=== PATIENT | male | born 1975 | race Caucasian/White ===

== ENCOUNTER 2016-07-17 01:02 | Emergency (ER) | payer BC ==
[2016-07-17 01:59] VITALS: BP 135/73; PULSE 75; TEMP 97.5; BMI 24.3
[2016-07-17] MEDS ORDERED: morphine CARPU-JECT 4 MG/1 ML DISP.SYRIN IVPUSH ONE (02:00)
[2016-07-17] MEDS ORDERED: SODIUM CHLORIDE 0.9% 1000 ML INFUS.BAG IV ONE (02:00)
[2016-07-17] MEDS ORDERED: KETOROLAC TROMETHAMINE 30 MG/1 ML VIAL IVPUSH ONE (02:00)
--- NOTE | 2016-07-17 02:08 | PDOC ---
History of Present Illness <Flor Finnegan - Last Filed: 07/17/16 03:16> - General History Source: Patient, Family Exam Limitations: No Limitations - History of Present Illness Initial Comments: 07/17/16 01:58 Patient is a 40 old male with no past medical history here with complaints of left flank pain which radiates to the left lower quad which started suddenly at 11pm after eating out. States pain is 10/10, sharp in the left flank then radiated to the left lower quad. He has nausea, vomiting and vomited a little blood per for significant other. Denies fever, chills, diarrhea, No prior episode, no h/o kidney stone but FamHx of kidney stone. PMD: Dr. Chun PMHX: neg PSOCHX: 8 cig, neg etoh, neg drugs ALL: NKDA GENERAL/CONSTITUTIONAL: [No fever or chills. No weakness. No weight change.] HEAD, EYES, EARS, NOSE AND THROAT: [No change in vision. No ear pain or discharge. No sore throat.] CARDIOVASCULAR: [No chest pain or shortness of breath.] RESPIRATORY: [No cough, wheezing, or hemoptysis.] GASTROINTESTINAL: (+) nausea, vomiting, (-) diarrhea or constipation. No rectal bleeding.] GENITOURINARY: [No dysuria, frequency, or change in urination.] MUSCULOSKELETAL: [No joint or muscle swelling or pain. No neck or back pain.] SKIN AND BREASTS: [No rash or easy bruising.] NEUROLOGIC: [No headache, vertigo, loss of consciousness, or loss of sensation.] PSYCHIATRIC: [No depression or anxiety.] ENDOCRINE: [No increased thirst. No abnormal weight change.] HEMATOLOGIC/LYMPHATIC: [No anemia, easy bleeding, or history of blood clots.] ALLERGIC/IMMUNOLOGIC: [No hives or skin allergy. No latex allergy.] GENERAL: [The patient is awake, alert, and fully oriented, in moderate painful distress.] HEAD: [Normal with no signs of trauma.] EYES: [Pupils equal, round and reactive to light, extraocular movements intact, sclera anicteric, conjunctiva clear.] ENT: [Ears normal, nares patent, oropharynx clear without exudates. Moist mucous membranes.] NECK: [Normal range of motion, supple without lymphadenopathy, JVD, or masses.] LUNGS: [Breath sounds equal, clear to auscultation bilaterally. No wheezes, and no crackles.] HEART: [Regular rate and rhythm, normal S1 and S2 without murmur, rub.] ABDOMEN: [Soft, (+) tenderness to the LLQ, normoactive bowel sounds. No guarding, no rebound. No masses, (+) LCVAT] EXTREMITIES: [Normal range of motion, no edema. No clubbing or cyanosis. No cords, erythema, or tenderness.] NEUROLOGICAL: [Cranial nerves II through XII grossly intact. Normal speech, normal gait.] PSYCH: [Normal mood, normal affect.] SKIN: [Warm, Dry, normal turgor, no rashes or lesions noted.] <Talya Chavez - Last Filed: 07/17/16 05:43> - General Chief Complaint: Pain Stated Complaint: ABDOMINAL AND BACK PAIN, VOMITTING Time Seen by Provider: 07/17/16 01:47 Past History <Flor Finnegan - Last Filed: 07/17/16 03:16> - Past Medical History Anemia: No Asthma: No Cancer: No Cardiac Disorders: No CVA: No COPD: No CHF: No Dementia: No Diabetes: No GI Disorders: No Disorders: No HTN: No Hypercholesterolemia: Yes Liver Disease: No Suicide Attempt (Hx): No Seizures: No Thyroid Disease: No - Surgical History Abdominal Surgery: No Appendectomy: No Cardiac Surgery: Yes (radial cardiac cath) Cholecystectomy: No Lung Surgery: No Neurologic Surgery: No Orthopedic Surgery: Yes (KNEE ARTHROSCOPY, RIGHT) - Immunization History Immunization Up to Date: Yes - Psycho/Social/Smoking Cessation Hx Anxiety: No Suicidal Ideation: No Smoking Status: Yes Smoking History: Former smoker Have you smoked in the past 12 months: Yes Number of Cigarettes Smoked Daily: 20 If you are a former smoker, when did you quit?: 06/2014 'Breaking Loose' booklet given: 04/21/13 Hx Alcohol Use: Yes Drug/Substance Use Hx: No Substance Use Type: Alcohol Hx Substance Use Treatment: No <Talya Chavez - Last Filed: 07/17/16 05:43> - Past Medical History Allergies/Adverse Reactions: Allergies Allergy/AdvReac Type Severity Reaction Status Date / Time No Known Drug Allergies Allergy Verified 05/07/16 18:38 Home Medications: Ambulatory Orders Amoxicillin/Potassium Clav [Augmentin 875-125 Tablet] 1 each PO BID #14 tablet 03/29/15 Promethazine HCl [Phenergan Plain 6.25 MG/5 ML -] 5 ml PO TID #120 ml 03/29/15 Naproxen Sodium [Naproxen Sodium ER] 500 mg PO BID #20 tablet.er 07/17/16 Oxycodone HCl/Acetaminophen [Percocet 5-325 mg Tablet] 1 - 2 tab PO Q4H #15 tablet MDD 6 07/17/16 Tamsulosin HCl [Flomax] 0.4 mg PO DAILY #7 capsule 07/17/16 *Physical Exam - Vital Signs Last Vital Signs Temp Pulse Resp BP Pulse Ox 97.5 F L 75 18 135/73 100 07/17/16 01:57 07/17/16 01:57 07/17/16 01:57 07/17/16 01:57 07/17/16 01:57 <Flor Finnegan - Last Filed: 07/17/16 03:16> ED Treatment Course - LABORATORY CBC & Chemistry Diagram: 07/17/16 02:10 07/17/16 02:10 - ADDITIONAL ORDERS Additional order review: Laboratory Results 07/17/16 02:10 Sodium 143 Potassium 3.7 Chloride 102 Carbon Dioxide 30 Anion Gap 11 BUN 20 H D Creatinine 1.0 D Creat Clearance w eGFR > 60 Random Glucose 105 D Calcium 9.1 Total Bilirubin 0.3 D AST 12 L ALT 34 Alkaline Phosphatase 88 Total Protein 6.9 Albumin 4.3 07/17/16 02:10 RBC 5.22 MCV 84.8 MCHC 34.3 RDW 14.0 MPV 11.8 H D Neutrophils % 81.7 D Lymphocytes % 11.5 D Monocytes % 5.8 Eosinophils % 0.6 Basophils % 0.4 - RADIOLOGY Radiograph Interpretation: 07/17/16 03:16 CT abdomen and pelvis without contrast Reported by Dr. Baljeet Seymour Findings: Lung bases are clear. The visualized cardiac chambers are normal size and configuration. There is mild left hydronephrosis and perinephric inflammation secondary to a 1 mm distal left ureteral stone, just adjacent to the UVJ. No other stones identified. Right hepatic lobe calcifications may be granulomas. Normal unenhanced gallbladder, pancreas, spleen, adrenal glands and right kidney. The stomach and abdominal small and large bowel are normal. There is no aortic aneurysm. There is no significant retroperitoneal lymphadenopathy. The pelvic small and large bowel are normal. The appendix is normal. The urinary bladder and prostate gland are normal. No pelvic free fluid is identified. There is no significant pelvic lymphadenopathy. - Medications Given in the ED: ED Medications Discontinued Medications Generic Name Dose Route Start Last Admin Trade Name Chavezq PRN Reason Stop Dose Admin Ketorolac Tromethamine 30 mg 07/17/16 02:00 07/17/16 02:14 Toradol Injection - IVPUSH 07/17/16 02:01 30 mg ONCE ONE Administration Morphine Sulfate 4 mg 07/17/16 02:00 07/17/16 02:14 Morphine Injection - IVPUSH 07/17/16 02:01 4 mg ONCE ONE Administration Sodium Chloride 1,000 ml 07/17/16 02:00 07/17/16 02:14 Normal Saline - IV 07/17/16 02:01 1,000 ml ONCE ONE Administration <Flor Finnegan - Last Filed: 07/17/16 03:16> - LABORATORY CBC & Chemistry Diagram: 07/17/16 02:10 07/17/16 02:10 <Talya Chavez - Last Filed: 07/17/16 05:43> Medical Decision Making - Medical Decision Making 07/17/16 02:08 Patient is a 40 old male with no past medical history here with complaints of left flank pain which radiates to the left lower quad which started suddenly at 11pm after eating out consistent with kidney stone. labs, IVF, UA ct abd/pel reassess labs and ct reviewed CT noted to have mild hydro and a 1mm stone Left UVJ will given flomax still c/o slight pain given Percocet 1 tab po 07/17/16 05:16 Laboratory Tests 07/17/16 03:53 Urine Color Yellow Urine Appearance Clear Urine pH 7.0 Ur Specific [place] 1.017 Urine Protein Negative Urine Glucose (UA) Negative Urine Ketones Negative Urine Blood 3+ H Urine Nitrite Negative Urine Bilirubin Negative Urine Urobilinogen Negative Ur Leukocyte Esterase Negative Urine RBC 186 Urine WBC 2 Urine Bacteria Rare Hyaline Casts 1 Urine Mucus Few Patient is feeling better will discharge with strainer, pain meds and follow up with urology I discussed the physical exam findings, ancillary test results and final diagnoses with the patient. I answered all of the patient's questions. The patient was satisfied with the care received and felt comfortable with the discharge plan and treatment plan. The Patient agrees to follow up with the Urology within 24-72 hours. <Talya Chavez - Last Filed: 07/17/16 05:43> *DC/Admit/Observation/Transfer <Flor Finnegan - Last Filed: 07/17/16 03:16> <Talya Chavez - Last Filed: 07/17/16 05:43> Diagnosis at time of Disposition: Renal colic on left side - Discharge Dispostion Disposition: HOME Condition at time of disposition: Stable - Prescriptions Prescriptions: Tamsulosin HCl [Flomax] 0.4 mg PO DAILY #7 capsule Naproxen Sodium [Naproxen Sodium ER] 500 mg PO BID #20 tablet.er Oxycodone HCl/Acetaminophen [Percocet 5-325 mg Tablet] 1 - 2 tab PO Q4H #15 tablet MDD 6 - Referrals Referrals: Tonny Parkinson MD [Staff Physician] - - Patient Instructions Printed Discharge Instructions: Kidney Stones -- Adult Additional Instructions: Your Discharge Instructions: You must call primary care physician within 24 hours to arrange follow-up. Return to the Emergency Department with any new, persistent or worsening symptoms, for fever, chills, SOB, dizziness or any other concerning changes that may occur.
[2016-07-17] MEDS ORDERED: KETOROLAC TROMETHAMINE 30 MG/1 ML VIAL ONE (02:11)
[2016-07-17] MEDS ORDERED: morphine CARPU-JECT 4 MG/1 ML DISP.SYRIN ONE (02:11)
[2016-07-17 02:16] LABS: BASOPHIL 0.4 % (0-2.0); EOSINOPHIL 0.6 % (0-4.5); MCH 29.1 pg (25.7-33.7); MCHC 34.3 g/dl (32.0-35.9); MEAN CELL VOLUME 84.8 fl (80-96); MEAN PLT VOLUME 11.8 fl (7.5-11.1); NEUTROPHILS 81.7 % (42.8-82.8); PLATELET COUNT 158 K/MM3 (134-434); WHITE BLOOD COUNT 14.8 K/mm3 (4.0-10.0)
[2016-07-17 02:38] LABS: ALBUMIN 4.3 g/dl (3.4-5.0); ALK PHOS 88 U/L (45-117); ANION GAP 11 (8-16); BILIRUBIN,TOTAL 0.3 mg/dL (0.2-1.0); CALCIUM 9.1 mg/dL (8.5-10.1); CO2 30 mmol/L (21-32); GLUCOSE,RANDOM 105 mg/dL (74-106); SGOT/AST 12 U/L (15-37); SGPT/ALT 34 U/L (12-78); TOT PROT 6.9 g/dl (6.4-8.2)
[2016-07-17] MEDS ORDERED: TAMSULOSIN HCL 0.4 MG CAP.ER.24H (FP) PO ONE (03:48)
[2016-07-17] MEDS ORDERED: OXYCODONE/APAP 5/325MG COMBO TABLET PO ONE (03:50)
[2016-07-17 03:55] LABS: PLATELET COMMENT2 NO CLOTTING DETECTED; PLATELET COMMENT3 FEW LARGE PLTS; PLATELET ESTIMATE ADEQUATE (NORMAL)
[2016-07-17 04:03] LABS: URINE APPEARANCE CLEAR; URINE BILIRUBIN NEGATIVE (NEGATIVE); URINE BLOOD 3+ (NEGATIVE); URINE COLOR YELLOW; URINE GLUCOSE (UA) NEGATIVE (NEGATIVE); URINE KETONE NEGATIVE (NEGATIVE); URINE LEUK ESTERASE NEGATIVE (NEGATIVE); URINE NITRITE NEGATIVE (NEGATIVE); URINE PROTEIN NEGATIVE (NEGATIVE); URINE UROBILINOGEN NEGATIVE E.U./dl (0.2-1.0)
[2016-07-17 04:05] LABS: URINE BACTERIA RARE /hpf (NONE SEEN); URINE HYALINE CAST 1 /lpf; URINE MUCUS FEW; URINE RBC 186 /hpf (0-3); URINE WBC 2 /hpf (3-5)
[2016-07-17] MEDS ORDERED: OXYCODONE/APAP 5/325MG COMBO TABLET ONE (04:57)
[2016-07-17] MEDS ORDERED: TAMSULOSIN HCL 0.4 MG CAP.ER.24H (FP) ONE (04:57)
== END 2016-07-17 05:53 | disposition home or self-care (01) ==
LOC: JER 01:02
PROC: 3E033NZ Introduction of Analgesics, Hypnotics, Sedatives into Peripheral Vein, Percutaneous Approach (ICD-10-PCS; principal; 2016-07-17)
PROC: 3E0333Z Introduction of Anti-inflammatory into Peripheral Vein, Percutaneous Approach (ICD-10-PCS; 2016-07-17)
DX: N13.2 Hydronephrosis with renal and ureteral calculous obstruction (principal)
CPT/HCPCS: 36415; 74176-TC; 80053; 81003; 81015; 85025; 99282-25

== ENCOUNTER 2020-07-07 14:12 | Emergency (ER) | payer BC ==
[2020-07-07 14:42] VITALS: BP 129/81; PULSE 75; TEMP 98.1; BMI 29.0
== END 2020-07-07 15:55 | disposition home or self-care (01) ==
LOC: JER 14:12
DX: R06.02 Shortness of breath (principal)
CPT/HCPCS: 71046-TC-FY; 99284-25

== ENCOUNTER 2021-07-01 08:13 | Emergency (ER) | payer BC ==
[2021-07-01 08:34] VITALS: BP 109/78; PULSE 66; TEMP 97.6; BMI 29.0
[2021-07-01 09:40] LABS: BASO % 0.9 % (0-2.0); EOS % 1.2 % (0-4.5); HEMATOCRIT 48.6 % (35.4-49); HEMOGLOBIN 16.1 GM/dL (11.7-16.9); LYMPH % 30.8 % (8-40); MCH 28.1 pg (25.7-33.7); MCHC 33.1 g/dl (32.0-35.9); MEAN CELL VOLUME 84.8 fl (80-96); MEAN PLT VOLUME 10.6 fl (7.5-11.1); MONO % 7.6 % (3.8-10.2); NEUT % 59.5 % (42.8-82.8); PLATELET COUNT 166 10^3/uL (134-434); RBC 5.73 M/mm3 (4.00-5.60); RDW 14.5 % (11.9-15.9)
[2021-07-01 09:42] LABS: URINE APPEARANCE CLEAR; URINE BILIRUBIN NEGATIVE (NEGATIVE); URINE COLOR YELLOW; URINE GLUCOSE (UA) NEGATIVE (NEGATIVE); URINE KETONE NEGATIVE (NEGATIVE); URINE LEUK ESTERASE NEGATIVE (NEGATIVE); URINE NITRITE NEGATIVE (NEGATIVE); URINE PROTEIN NEGATIVE (NEGATIVE); URINE UROBILINOGEN 0.2 mg/dL (0.2-1.0)
[2021-07-01] MEDS ORDERED: SODIUM CHLORIDE 1,000 ML IV STA (10:01)
[2021-07-01] MEDS ORDERED: ACETAMINOPHEN 1000 MG/100 ML BAG IVPB ONE (10:02)
[2021-07-01 10:13] LABS: ALBUMIN 3.9 g/dl (3.4-5.0); BLOOD UREA NITROGEN 11.4 mg/dL (7-18)
[2021-07-01 10:16] LABS: CREATININE 0.9 mg/dL (0.55-1.3)
[2021-07-01 10:18] LABS: BILIRUBIN,TOTAL 0.5 mg/dL (0.2-1)
[2021-07-01] MEDS ORDERED: ACETAMINOPHEN INJECTION 100 ML IVPB ONE (10:18)
== END 2021-07-01 12:28 | disposition home or self-care (01) ==
LOC: JER 08:13
PROC: 3E033NZ Introduction of Analgesics, Hypnotics, Sedatives into Peripheral Vein, Percutaneous Approach (ICD-10-PCS; principal; 2021-07-01)
PROC: 3E0337Z Introduction of Electrolytic and Water Balance Substance into Peripheral Vein, Percutaneous Approach (ICD-10-PCS; 2021-07-01)
DX: R10.32 Left lower quadrant pain (principal)
CPT/HCPCS: 36415; 74177-TC; 80053; 81003; 83690; 85025; 87804; 99285-25; C9803; J0131; Q9967; U0003; U0005

== ENCOUNTER 2022-01-24 04:32 | Day surgery (SDC) | payer BC ==
[2022-01-20 15:19] VITALS: BMI 28.1
[2022-01-24] MEDS ORDERED: BUPIVACAINE HCL/PF 0.75% 10 ML VIAL ONE (07:20)
[2022-01-24] MEDS ORDERED: LIDOCAINE HCL/PF 1% SDV 5ML VIAL ONE (07:21)
[2022-01-24] MEDS ORDERED: BUPIVACAINE HCL/PF 0.75% 10 ML VIAL NR ONE (13:55)
[2022-01-24] MEDS ORDERED: LIDOCAINE HCL 1% PRESERVATIVE FREE - 30ML VIAL IJ ONE (13:56)
[2022-01-24 15:52] VITALS: BP 133/86; PULSE 60; RESP 20; TEMP 99
== END 2022-01-24 15:00 | disposition home or self-care (01) ==
LOC: JASU-SURG 04:32
PROVIDERS: ATTEND Pain Medicine Pain Medicine
PROC: BR16YZZ Fluoroscopy of Lumbar Facet Joint(s) using Other Contrast (ICD-10-PCS; 2022-01-24)
PROC: 3E0T3BZ Introduction of Anesthetic Agent into Peripheral Nerves and Plexi, Percutaneous Approach (ICD-10-PCS; principal; 2022-01-24 14:00)
DX: M47.816 Spondylosis without myelopathy or radiculopathy, lumbar region (principal)
CPT/HCPCS: 76000-TC-FY

== ENCOUNTER 2022-02-21 04:24 | Day surgery (SDC) | payer BC ==
[2022-02-17 14:03] VITALS: BMI 28.1
[2022-02-21] MEDS ORDERED: DEXAMETHASONE SOD PHOSPHATE 10 MG/1 ML VIAL ONE (07:38)
[2022-02-21] MEDS ORDERED: LIDOCAINE HCL/PF 1% SDV 5ML VIAL ONE (07:38)
[2022-02-21] MEDS ORDERED: IOHEXOL 180 MG/1 ML ML IJ ONE (10:21)
[2022-02-21] MEDS ORDERED: LIDOCAINE HCL 1% PRESERVATIVE FREE - 30ML VIAL IJ ONE (10:21)
[2022-02-21] MEDS ORDERED: DEXAMETHASONE SOD PHOSPHATE 10 MG/1 ML VIAL IVPUSH ONE (10:22)
[2022-02-21 13:19] VITALS: BP 129/87; PULSE 67; RESP 18; TEMP 97.9
== END 2022-02-21 11:30 | disposition home or self-care (01) ==
LOC: JASU-SURG 04:24
PROVIDERS: ATTEND Pain Medicine Pain Medicine
PROC: 3E0R33Z Introduction of Anti-inflammatory into Spinal Canal, Percutaneous Approach (ICD-10-PCS; 2022-02-21)
PROC: 3E0R3BZ Introduction of Anesthetic Agent into Spinal Canal, Percutaneous Approach (ICD-10-PCS; principal; 2022-02-21 09:00)
DX: M54.16 Radiculopathy, lumbar region (principal)
CPT/HCPCS: 76000-TC-FY; J1100

== ENCOUNTER 2022-03-24 04:28 | Day surgery (SDC) | payer BC, OTHER ==
[2022-03-23 10:30] VITALS: BMI 28.1
[2022-03-24] MEDS ORDERED: TRIAMCINOLONE ACET 40MG/1ML VIAL ONE (08:11)
[2022-03-24] MEDS ORDERED: BUPIVACAINE HCL/PF 0.5% (5MG/ML) 10 ML VIAL ONE (08:11)
[2022-03-24] MEDS ORDERED: LIDOCAINE HCL/PF 1% SDV 5ML VIAL ONE (08:11)
[2022-03-24 12:01] VITALS: RESP 18
[2022-03-24] MEDS ORDERED: LIDOCAINE HCL 1% PRESERVATIVE FREE - 30ML VIAL IJ ONE ×3 (13:39→14:24)
[2022-03-24] MEDS ORDERED: BUPIVACAINE HCL/PF 0.5% (5MG/ML) 10 ML VIAL IJ ONE ×2 (13:41→14:24)
[2022-03-24] MEDS ORDERED: TRIAMCINOLONE ACETONIDE 40 MG/ML 10 ML VIAL IJ ONE ×2 (13:42→14:24)
[2022-03-24] MEDS ORDERED: IOHEXOL 180 MG/1 ML ML IJ ONE (14:24)
[2022-03-24 14:56] VITALS: BP 108/75; PULSE 63; TEMP 98.2
== END 2022-03-24 15:07 | disposition home or self-care (01) ==
LOC: JASU-SURG 04:28
PROVIDERS: ATTEND Pain Medicine Pain Medicine
PROC: 3E0U3BZ Introduction of Anesthetic Agent into Joints, Percutaneous Approach (ICD-10-PCS; 2022-03-24)
PROC: 3E0U33Z Introduction of Anti-inflammatory into Joints, Percutaneous Approach (ICD-10-PCS; principal; 2022-03-24 13:00)
DX: M53.3 Sacrococcygeal disorders, not elsewhere classified (principal)
CPT/HCPCS: 76000-TC-FY